=== PATIENT | female | born 1970 | race Caucasian/White ===

== ENCOUNTER → 2018-01-09 | Outpatient (CLI) | payer OTHER ==
[~2018-01-09] MED LIST: ACET500 PO; ALBU90OI INH; ALBU90OI6 INH; AMOCLA875 PO; Bactrim Ds Tab1 EACH PO; CEPH500 PO; CLOT1TC TOP; CODGUAEL PO; CYCL10 PO; Cinnamon500 MG; Colace100 MG PO; Crutch1 EACH MISC; Echinacea500 MG PO; Echinacea80 MG PO; GLUC500 PO; HYDACE10B PO; HYDACE5 PO; Hair, Skin & N1 EACH PO; IBUP400 PO; IBUP600 PO; IBUP800 MT; IBUP800 PO; LEVFLO500 PO; Macrobid 100 M100 MG PO; NAPR500 PO; Norco 5-325 Ta1 EACH PO; ONDA4 PO; OXYB5 PO; PROBIOTIC1 EAC4 PO; PROCODE120 PO; Percocet 5-3251 EACH PO; Prednisone20 MG PO; Pyridium100 MG PO; Pyridium200 MG PO; Ultram50 MG PO; ZADITOR5 ML BOTHEYES; Zofran Odt4 MG SL; [UNRECOGNIZED DRUG - OTHER]
== END | disposition home or self-care (01) ==
LOC: LAB EV 16:29
DX: R30.0 Dysuria (principal)
CPT/HCPCS: 87086

== ENCOUNTER 2018-01-25 02:40 | Emergency (ER) | payer OTHER ==
[~2018-01-25] VITALS: Ht 172.7 cm; Wt 88.0 kg
[~2018-01-25 02:40] MED LIST changes: -Echinacea500 MG PO; -Hair, Skin & N1 EACH PO; -Macrobid 100 M100 MG PO; -PROBIOTIC1 EAC4 PO; -Pyridium100 MG PO
[2018-01-25 02:54] LABS: Source, Urine Clean Catch
[2018-01-25 02:59] LABS: Bilirubin, Urine Neg (Neg); Blood, Urine 5+ (Neg); Glucose Qualitative, Urine Neg (Neg); Ketones, Urine Neg (Neg); Leukocyte Esterase, Urine 2+ (Neg); Nitrite, Urine Neg (Neg); Protein, Urine 3+ (Neg); Urobilinogen, Urine 1+ (Normal)
[2018-01-25 03:12] LABS: Appearance, Urine Hazy (Clear); Color, Urine Yellow (P-Yellow)
[2018-01-25 03:13] LABS: Amorphous Mod (0-Heavy); Bacteria Mod /hpf; Red Blood Cells, Urine Rare /hpf (0-2); Squamous Epithelial Cells Few /hpf (Few); White Blood Cells, Urine 50-100 /hpf (0-5)
[2018-01-25] MEDS ORDERED: CEPH500 PO (03:19)
[2018-01-25] MEDS ORDERED: Pyridium100 MG PO (03:19)
== END 2018-01-25 03:29 | disposition home or self-care (01) ==
LOC: ER 02:40
PROVIDERS: Emergency Medicine
DX: N39.0 Urinary tract infection, site not specified (principal); Z88.5 Allergy status to narcotic agent
CPT/HCPCS: 81001; 87077; 87086; 87186; 99283

== ENCOUNTER → 2018-04-23 | Outpatient (CLI) | payer OTHER ==
[~2018-04-23] MED LIST changes: +Pyridium100 MG PO
== END | disposition home or self-care (01) ==
LOC: LAB EV 18:54 → LAB SHORT 18:54
DX: N30.01 Acute cystitis with hematuria (principal)
CPT/HCPCS: 87086

== ENCOUNTER → 2018-08-01 | Outpatient (CLI) | payer OTHER ==
[~2018-08-01] MED LIST changes: +Echinacea500 MG PO; +Hair, Skin & N1 EACH PO; +PROBIOTIC1 EAC4 PO
== END | disposition home or self-care (01) ==
LOC: LAB EV 18:43 → LAB SHORT 18:43
DX: M67.441 Ganglion, right hand (principal)
CPT/HCPCS: 87070; 87075; 87205

== ENCOUNTER 2018-08-02 06:15 | Day surgery (SDC) | payer OTHER ==
[~2018-08-02] VITALS: Ht 172.7 cm; Wt 94.3 kg
[~2018-08-02 06:15] MED LIST changes: -Echinacea500 MG PO; -Hair, Skin & N1 EACH PO; -PROBIOTIC1 EAC4 PO
[2018-08-02] MEDS ORDERED: Hair, Skin & N1 EACH PO (07:03)
[2018-08-02] MEDS ORDERED: Echinacea500 MG PO (07:04)
[2018-08-02] MEDS ORDERED: PROBIOTIC1 EAC4 PO (07:04)
== END 2018-08-02 11:59 | disposition home or self-care (01) ==
LOC: ORSCSDS 06:15
PROVIDERS: Orthopaedic Surgery
PROC: 0SQC4ZZ Repair Right Knee Joint, Percutaneous Endoscopic Approach (ICD-10-PCS; principal; 2018-08-02 07:30)
DX: S83.281A Other tear of lateral meniscus, current injury, right knee, initial encounter (principal)
CPT/HCPCS: C1713; J0171; J0690; J1100; J1885; J2250; J2405; J2765; J3010; J7120